=== PATIENT | female | born 1990 | race American Indian/Alaskan Native ===

== ENCOUNTER 2018-02-17 12:13 | Emergency (ER) | payer OTHER ==
[2018-02-17 13:13] LABS: Bacteria,Urine 1+ /HPF (Negative); Bilirubin,Urine NEG (Negative); Blood,Urine NEG (Negative); Color,Urine Yellow (Yellow); Mucus,Urine 2+ /HPF; Protein,Urine <15 mg/dL mg/dL (Negative)
[2018-02-17 13:14] LABS: HCG Qualitative,Urine Positive (Negative)
--- NOTE | 2018-02-17 13:16 | Emergency Department Report ---
Blank Doc - Documentation Documentation: 27-year-old female with a previous appendectomy presents complaining of recent positive test complains of cramping times one week. Cramping is constant, rated 4/10 in intensity, greatest in the left lower quadrant. No aggravating or alleviating factors reported. She complains of white vaginal discharge but denies dysuria or vaginal bleeding. She is seen by [facility]ID[facility]ITATOR. She explained her symptoms and was told to come to the ER for evaluation. She has not had an US during this . minimal suprapubic tenderness ua/upt pending labs us ordered pt declined tylenol for pain repeat vitals midlevel to follow
--- NOTE | 2018-02-17 14:25 | Ultrasound Report ---
OB ultrasound: Pelvic cramping. Endovaginal and transabdominal imaging demonstrates an anteverted uterus measuring 6.0 x 7.6 x 9.6 cm. The myometrium is homogeneous. There is a intrauterine regnancy. There is a pineda crown-rump length measuring 2 mm consistent with of 5 weeks 5 days. heart rate of 89 beats per minute is noted. A small yolk sac is present. There is a minimal subchorionic hemorrhage. The left ovary measures 2.8 cm containing a 1.2 cm cyst. The right ovary measures 3.5 cm containing a 2.6 cm cyst. Impression: Viable pineda IUP. No significant complication noted.
[2018-02-17 14:27] LABS: Basophils % (Auto) 0.3 % (0.0-1.8); Eosinophils # (Auto) 0.1 K/mm3 (0.0-0.4); Eosinophils % (Auto) 0.9 % (0.0-4.3); Hematocrit 38.3 % (30.3-42.9); Hemoglobin 12.8 gm/dl (10.1-14.3); Lymphocytes # (Auto) 2.6 K/mm3 (1.2-5.4); Lymphocytes % (Auto) 27.6 % (13.4-35.0); Mean Corpuscular HGB Conc 34 % (30-34); Mean Corpuscular Hemoglobin 32 pg (28-32); Mean Corpuscular Volume 95 fl (79-97); Monocytes # (Auto) 0.8 K/mm3 (0.0-0.8); Monocytes % (Auto) 8.4 % (0.0-7.3); Platelet Count 226 K/mm3 (140-440); Red Blood Count 4.02 M/mm3 (3.65-5.03); Red Cell Distribution Width 13.9 % (13.2-15.2)
--- NOTE | 2018-02-17 14:51 | Emergency Department Report ---
ED Abdominal Pain HPI - General Chief Complaint: Abdominal Pain Stated Complaint: STOMACH CRAMPS/ Time Seen by Provider: 02/17/18 13:06 Source: patient, family Mode of arrival: Ambulatory Limitations: No Limitations - History of Present Illness Initial Comments: 27-year-old female with a previous appendectomy presents complaining of recent positive test complains of cramping times one week. Cramping is constant, rated 4/10 in intensity, greatest in the left lower quadrant. No aggravating or alleviating factors reported. She complains of white vaginal discharge but denies dysuria or vaginal bleeding. 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 Patient told me that she then scheduled e scheduled appointment with Dr. Squires on 03/07/2018. n. She has not had an US during this . Pain is 4 out of 10 cramping to pelvic area. Initially when pain started it was all no it is tender left lower quadrant. Last measured. At 03/2018. Complaint: abdominal pain Onset/Timin -: week(s) Location: LLQ Radiation: none Migration to: no migration Severity scale (0 -10): 0 Quality: cramping Consistency: intermittent Improves With: nothing Worsens With: nothing Associated Symptoms: denies: nausea, vomiting, diarrhea, fever, chills, constipation, dysuria, hematemesis, hematochezia, melena, hematuria, anorexia, syncope Treatments Prior to Arrival: other - Related Data Previous Rx's Medication Instructions Recorded Last Taken Type Vit No.130/Iron/Folic 1 each PO QAM 30 Days #30 tablet 02/17/18 Unknown Rx [ Tablet] cephALEXin [Keflex] 500 mg PO Q8HR 7 Days #21 cap 02/17/18 Unknown Rx Allergies Allergy/AdvReac Type Severity Reaction Status Date / Time No Known Allergies Allergy Verified 02/17/18 12:24 ED Review of Systems ROS: Stated complaint: STOMACH CRAMPS/ Other details as noted in HPI Constitutional: denies: chills, fever ENT: denies: throat pain, congestion Respiratory: denies: cough, shortness of breath, SOB with exertion, SOB at rest , stridor, wheezing Cardiovascular: denies: chest pain, palpitations, dyspnea on exertion, edema, syncope, paroxysmal nocturnal dyspnea Gastrointestinal: denies: abdominal pain, nausea, vomiting, constipation, hematemesis Genitourinary: discharge (whitish is not unusual without any odor.). denies: urgency, dysuria, frequency, hematuria Musculoskeletal: denies: back pain, joint swelling, arthralgia, myalgia Skin: denies: rash Neurological: denies: headache ED Past Medical Hx - Past Medical History Previous Medical History?: No - Surgical History Past Surgical History?: Yes Hx Appendectomy: Yes - Family History Family history: hypertension - Social History Smoking Status: Never Smoker Substance Use Type: None - Medications Home Medications: Home Medications Medication Instructions Recorded Confirmed Last Taken Type Vit No.130/Iron/Folic 1 each PO QAM 30 Days #30 tablet 02/17/18 Unknown Rx [ Tablet] cephALEXin [Keflex] 500 mg PO Q8HR 7 Days #21 cap 02/17/18 Unknown Rx ED Physical Exam - General Limitations: No Limitations General appearance: alert, in no apparent distress - Head Head exam: Present: atraumatic, normocephalic, normal inspection - Eye Eye exam: Present: normal appearance, PERRL, EOMI Pupils: Present: normal accommodation - ENT ENT exam: Present: normal exam, normal orophraynx, mucous membranes moist - Neck Neck exam: Present: normal inspection, full ROM. Absent: tenderness, lymphadenopathy - Respiratory Respiratory exam: Present: normal lung sounds bilaterally. Absent: respiratory distress, chest wall tenderness - Cardiovascular Cardiovascular Exam: Present: regular rate, normal rhythm, normal heart sounds. Absent: systolic murmur, diastolic murmur - GI/Abdominal GI/Abdominal exam: Present: soft, tenderness (mild suprapubic tenderness.), normal bowel sounds, hernia. Absent: distended, guarding, rebound, rigid, organomegaly, mass, bruit - Extremities Exam Extremities exam: Present: normal inspection, full ROM, normal capillary refill , other (No cce. + 2 pulses in all extremities, no neurovascular compromise). Absent: tenderness, pedal edema, joint swelling, calf tenderness - Back Exam Back exam: Present: normal inspection, full ROM, other (ambulates without any difficulties). Absent: tenderness, CVA tenderness (R), CVA tenderness (L), muscle spasm, paraspinal tenderness, vertebral tenderness, rash noted - Neurological Exam Neurological exam: Present: alert, oriented X3, normal gait, reflexes normal. Absent: motor sensory deficit - Psychiatric Psychiatric exam: Present: normal affect, normal mood - Skin Skin exam: Present: warm, dry, intact, normal color. Absent: rash ED Course Vital Signs 02/17/18 02/17/18 12:17 15:00 Temperature 98.1 F Pulse Rate 109 H 82 Respiratory 18 Rate Blood Pressure 111/75 101/58 O2 Sat by Pulse 99 100 Oximetry Lab Results 02/17/18 02/17/18 02/17/18 Range/Units 12:53 13:55 13:55 WBC 9.5 (4.5-11.0) K/mm3 RBC 4.02 (3.65-5.03) M/mm3 Hgb 12.8 (10.1-14.3) gm/dl Hct 38.3 (30.3-42.9) % MCV 95 (79-97) fl MCH 32 (28-32) pg MCHC 34 (30-34) % RDW 13.9 (13.2-15.2) % Plt Count 226 (140-440) K/mm3 Lymph % (Auto) 27.6 (13.4-35.0) % [place] % (Auto) 8.4 H (0.0-7.3) % Eos % (Auto) 0.9 (0.0-4.3) % Baso % (Auto) 0.3 (0.0-1.8) % Lymph # 2.6 (1.2-5.4) K/mm3 [place] # 0.8 (0.0-0.8) K/mm3 Eos # 0.1 (0.0-0.4) K/mm3 Baso # 0.0 (0.0-0.1) K/mm3 Seg Neutrophils % 62.8 (40.0-70.0) % Seg Neutrophils # 6.0 (1.8-7.7) K/mm3 HCG, Qual Positive (Negative) HCG, Quant (0-4) mIU/mL Urine Color Yellow (Yellow) Urine Turbidity Slightly-cloudy (Clear) Urine pH 7.0 (5.0-7.0) Ur Specific [place] 1.025 (1.003-1.030) Urine Protein <15 mg/dl (Negative) mg/dL Urine Glucose (UA) Neg (Negative) mg/dL Urine Ketones Neg (Negative) mg/dL Urine Blood Neg (Negative) Urine Nitrite Neg (Negative) Urine Bilirubin Neg (Negative) Urine Urobilinogen 4.0 (<2.0) mg/dL Ur Leukocyte Esterase Mod (Negative) Urine WBC (Auto) 3.0 (0.0-6.0) /HPF Urine RBC (Auto) 1.0 (0.0-6.0) /HPF U Epithel Cells (Auto) 1.0 (0-13.0) /HPF Urine Bacteria (Auto) 1+ (Negative) /HPF Urine Mucus 2+ /HPF Urine HCG, Qual Positive A (Negative) Blood Type Antibody Screen 02/17/18 02/17/18 Range/Units 13:55 13:55 WBC (4.5-11.0) K/mm3 RBC (3.65-5.03) M/mm3 Hgb (10.1-14.3) gm/dl Hct (30.3-42.9) % MCV (79-97) fl MCH (28-32) pg MCHC (30-34) % RDW (13.2-15.2) % Plt Count (140-440) K/mm3 Lymph % (Auto) (13.4-35.0) % [place] % (Auto) (0.0-7.3) % Eos % (Auto) (0.0-4.3) % Baso % (Auto) (0.0-1.8) % Lymph # (1.2-5.4) K/mm3 [place] # (0.0-0.8) K/mm3 Eos # (0.0-0.4) K/mm3 Baso # (0.0-0.1) K/mm3 Seg Neutrophils % (40.0-70.0) % Seg Neutrophils # (1.8-7.7) K/mm3 HCG, Qual (Negative) HCG, Quant 9035 H (0-4) mIU/mL Urine Color (Yellow) Urine Turbidity (Clear) Urine pH (5.0-7.0) Ur Specific [place] (1.003-1.030) Urine Protein (Negative) mg/dL Urine Glucose (UA) (Negative) mg/dL Urine Ketones (Negative) mg/dL Urine Blood (Negative) Urine Nitrite (Negative) Urine Bilirubin (Negative) Urine Urobilinogen (<2.0) mg/dL Ur Leukocyte Esterase (Negative) Urine WBC (Auto) (0.0-6.0) /HPF Urine RBC (Auto) (0.0-6.0) /HPF U Epithel Cells (Auto) (0-13.0) /HPF Urine Bacteria (Auto) (Negative) /HPF Urine Mucus /HPF Urine HCG, Qual (Negative) Blood Type O POSITIVE Antibody Screen Negative Urine culture sent - Reevaluation(s) Reevaluation #1: 02/17/18 15:21 Patient with urinary tract infection. Lab results discussed the patient along with ultrasound results. ED Medical Decision Making - Lab Data Result diagrams: 02/17/18 13:55 Lab Results 02/17/18 02/17/18 02/17/18 Range/Units 12:53 13:55 13:55 WBC 9.5 (4.5-11.0) K/mm3 RBC 4.02 (3.65-5.03) M/mm3 Hgb 12.8 (10.1-14.3) gm/dl Hct 38.3 (30.3-42.9) % MCV 95 (79-97) fl MCH 32 (28-32) pg MCHC 34 (30-34) % RDW 13.9 (13.2-15.2) % Plt Count 226 (140-440) K/mm3 Lymph % (Auto) 27.6 (13.4-35.0) % [place] % (Auto) 8.4 H (0.0-7.3) % Eos % (Auto) 0.9 (0.0-4.3) % Baso % (Auto) 0.3 (0.0-1.8) % Lymph # 2.6 (1.2-5.4) K/mm3 [place] # 0.8 (0.0-0.8) K/mm3 Eos # 0.1 (0.0-0.4) K/mm3 Baso # 0.0 (0.0-0.1) K/mm3 Seg Neutrophils % 62.8 (40.0-70.0) % Seg Neutrophils # 6.0 (1.8-7.7) K/mm3 HCG, Qual Positive (Negative) HCG, Quant (0-4) mIU/mL Urine Color Yellow (Yellow) Urine Turbidity Slightly-cloudy (Clear) Urine pH 7.0 (5.0-7.0) Ur Specific [place] 1.025 (1.003-1.030) Urine Protein <15 mg/dl (Negative) mg/dL Urine Glucose (UA) Neg (Negative) mg/dL Urine Ketones Neg (Negative) mg/dL Urine Blood Neg (Negative) Urine Nitrite Neg (Negative) Urine Bilirubin Neg (Negative) Urine Urobilinogen 4.0 (<2.0) mg/dL Ur Leukocyte Esterase Mod (Negative) Urine WBC (Auto) 3.0 (0.0-6.0) /HPF Urine RBC (Auto) 1.0 (0.0-6.0) /HPF U Epithel Cells (Auto) 1.0 (0-13.0) /HPF Urine Bacteria (Auto) 1+ (Negative) /HPF Urine Mucus 2+ /HPF Urine HCG, Qual Positive A (Negative) Blood Type Antibody Screen 02/17/18 02/17/18 Range/Units 13:55 13:55 WBC (4.5-11.0) K/mm3 RBC (3.65-5.03) M/mm3 Hgb (10.1-14.3) gm/dl Hct (30.3-42.9) % MCV (79-97) fl MCH (28-32) pg MCHC (30-34) % RDW (13.2-15.2) % Plt Count (140-440) K/mm3 Lymph % (Auto) (13.4-35.0) % [place] % (Auto) (0.0-7.3) % Eos % (Auto) (0.0-4.3) % Baso % (Auto) (0.0-1.8) % Lymph # (1.2-5.4) K/mm3 [place] # (0.0-0.8) K/mm3 Eos # (0.0-0.4) K/mm3 Baso # (0.0-0.1) K/mm3 Seg Neutrophils % (40.0-70.0) % Seg Neutrophils # (1.8-7.7) K/mm3 HCG, Qual (Negative) HCG, Quant 9035 H (0-4) mIU/mL Urine Color (Yellow) Urine Turbidity (Clear) Urine pH (5.0-7.0) Ur Specific [place] (1.003-1.030) Urine Protein (Negative) mg/dL Urine Glucose (UA) (Negative) mg/dL Urine Ketones (Negative) mg/dL Urine Blood (Negative) Urine Nitrite (Negative) Urine Bilirubin (Negative) Urine Urobilinogen (<2.0) mg/dL Ur Leukocyte Esterase (Negative) Urine WBC (Auto) (0.0-6.0) /HPF Urine RBC (Auto) (0.0-6.0) /HPF U Epithel Cells (Auto) (0-13.0) /HPF Urine Bacteria (Auto) (Negative) /HPF Urine Mucus /HPF Urine HCG, Qual (Negative) Blood Type O POSITIVE Antibody Screen Negative - Radiology Data Radiology results: report reviewed Ultrasound transvaginal and will be transabdominal dictated radiologist report reviewed by myself. Please see report below. Patient: RAFAEL AGUIRRE MR#: [id number] : 1990 Acct:[id number] Age/Sex: 27 / F ADM Date: 02/17/18 Loc: ED Attending Dr: Ordering Physician: NIRALI MURPHY MD Date of Service: 02/17/18 Procedure(s): US OB transvaginal Accession Number(s): [id number] cc: NIRALI MURPHY MD OB ultrasound: Pelvic cramping. Endovaginal and transabdominal imaging demonstrates an anteverted uterus measuring 6.0 x 7.6 x 9.6 cm. The myometrium is homogeneous. There is a intrauterine regnancy. There is a pineda crown-rump length measuring 2 mm consistent with of 5 weeks 5 days. heart rate of 89 beats per minute is noted. A small yolk sac is present. There is a minimal subchorionic hemorrhage. The left ovary measures 2.8 cm containing a 1.2 cm cyst. The right ovary measures 3.5 cm containing a 2.6 cm cyst. Impression: Viable pineda IUP. No significant complication noted. Transcribed By: BIJAN Dictated By: HOMA MADDOX MD Electronically Authenticated By: HOMA MADDOX MD Signed Date/Time: 02/17/181406 DD/ 01 TD/TT: 02/17/181406 Findings [facility] [address] [place] [address] Ultrasound Report Signed Patient: RAFAEL AGUIRRE MR#: [id number] : 1990 Acct:[id number] Age/Sex: 27 / F ADM Date: 02/17/18 Loc: ED Attending Dr: Ordering Physician: NIRALI MURPHY MD Date of Service: 02/17/18 Procedure(s): US OB transvaginal Accession Number(s): [id number] cc: NIRALI MURPHY MD OB ultrasound: Pelvic cramping. Endovaginal and transabdominal imaging demonstrates an anteverted uterus measuring 6.0 x 7.6 x 9.6 cm. The myometrium is homogeneous. There is a intrauterine regnancy. There is a pineda crown-rump length measuring 2 mm consistent with of 5 weeks 5 days. heart rate of 89 beats per minute is noted. A small yolk sac is present. There is a minimal subchorionic hemorrhage. The left ovary measures 2.8 cm containing a 1.2 cm cyst. The right ovary measures 3.5 cm containing a 2.6 cm cyst. Impression: Viable pineda IUP. No significant complication noted. Transcribed By: [facility] Dictated By: HOMA MADDOX MD Electronically Authenticated By: HOMA MADDOX MD Signed Date/Time: 02/17/181406 DD/ 01 TD/TT: 02/17/181406 - Medical Decision Making This is a 27-year-old female here report that she is a positive test and she has been having an abdominal cramping for the last 10 days. She says she went to her first OB appointment and told them she has abdominal cramping and period. Patient was screened by Dr. Luu and or orders placed. Patient's physical finances normal except she has mild suprapubic tenderness. CBC and CMP within normal limits. Positive test and urinalysis with moderate leukocyte Estrace, positive bacteria and urine cloudy. Cultures sent. Quantitative hCG correlates with ultrasound. Patient had transient abdominal entrance vaginal OB ultrasound done that was dictated by radiologist and report reviewed by myself. Patient with 5 weeks and 5 days IUP with heart tone at 89 bpm and mild subchorionic bleed noted. Diagnosis, ultrasound and laboratory results explained to patient. She voiced understanding. I discussed with patient that she needs to start care and start taking vitamin and if she develop any increasing abdominal pain, vaginal bleeding in to return to the emergency room [facility] otherwise to keep her appointment with Dr. Squires on 03/07/2018. Patient was understanding of discharge instructions and she was discharged home in stable condition with prescription for Keflex to treat UTI and culture sent and vitamin for care. She is O+ so she does not need RhoGAM for mild subchorionic bleed. Critical care attestation.: If time is entered above; I have spent that time in minutes in the direct care of this critically ill patient, excluding procedure time. ED Disposition Clinical Impression: Abdominal pain during in first trimester, UTI (urinary tract infection) in in first trimester Subchorionic bleed Qualifiers: Fetus number: single or unspecified fetus Trimester: first trimester Qualified Code(s): O41.8X10 - Other specified disorders of amniotic fluid and membranes, first trimester, not applicable or unspecified; O46.8X1 - Other antepartum hemorrhage, first trimester Qualifiers: Weeks of gestation: less than 8 weeks Qualified Code(s): Z3A.01 - Less than 8 weeks gestation of Disposition: DC-01 TO HOME OR SELFCARE Is pt being admited?: No Does the pt Need Aspirin: No Condition: Stable Instructions: Abdominal Pain (ED), Abdominal Pain in (ED), Urinary Tract Infection in Women (ED), (ED), Morning Sickness (ED) Additional Instructions: Please keep the appointment with Dr. Squires and 03/07/2018 Take vitamin as prescribed Inrease fluid intake Take Keflex for urinary tract infection If he develops vaginal bleeding and and/or increase in abdominal pain, return to the emergency room [facility]. Prescriptions: Vit No.130/Iron/Folic [ Tablet] 1 each PO QAM 30 Days #30 tablet Referrals: PRIMARY CAREMD [Primary Care Provider] - 3-5 Days BOSTON SQUIRES MD [Staff Physician] - 02/20/18 Forms: Work/School Release Form(ED)
[2018-02-17 15:48] VITALS: BP 136/74
== END 2018-02-17 15:46 | disposition home or self-care (01) ==
LOC: ED 12:13
DX: O23.41 Unspecified infection of urinary tract in pregnancy, first trimester (principal); O41.8X10 Other specified disorders of amniotic fluid and membranes, first trimester, not applicable or unspecified; O46.8X1 Other antepartum hemorrhage, first trimester; Z3A.01 Less than 8 weeks gestation of pregnancy
CPT/HCPCS: 36415; 76801; 76817; 81001; 81025; 84702; 84703; 85025; 86850; 86900; 86901; 87086